=== PATIENT | male | born 1975 | race Caucasian/White ===

== ENCOUNTER → 2022-04-04 12:50 | Outpatient (BNVA) | payer BC, SELFPAY | PROVIDERS: PCP Internal Medicine; Visit Provider Surgery | DX: Z13.89 Encounter for screening for other disorder (principal) ==

== ENCOUNTER 2022-04-22 15:49 | Outpatient (REF) | payer BC, SELFPAY ==
--- NOTE | ~2022-04-22 | US_ITS ---
EXAMINATION: LEFT ELBOW ULTRASOUND CLINICAL INFORMATION: Pain left elbow COMPARISON: None TECHNIQUE: Limited ultrasound imaging to the left elbow was performed. FINDINGS: There is a complex echogenic fluid collection posterior left elbow could suggestive of olecranon bursitis. No additional abnormality seen. US/US extremity nonvascular IMPRESSION: Left olecranon bursitis posterior left elbow.
== END 2022-04-22 15:50 | disposition home or self-care (01) ==
LOC: HO.US 15:49
PROVIDERS: PCP Internal Medicine; Visit Provider Nurse Practitioner Acute Care
DX: M25.522 Pain in left elbow (principal)
CPT/HCPCS: 76882

== ENCOUNTER → 2022-05-18 14:10 | Outpatient (BNVA) | payer BC, SELFPAY | PROVIDERS: PCP Internal Medicine; Visit Provider Surgery | DX: D17.21 Benign lipomatous neoplasm of skin and subcutaneous tissue of right arm (principal) | CPT/HCPCS: 11400; 11401 ==

== ENCOUNTER 2024-02-29 15:09 | Emergency (ER) | payer BC, SELFPAY ==
[2024-02-29 15:36] VITALS: BP 128/80; PULSE 76; RESP 18; TEMP 36.7; O2SAT 96; BMI 26.4
--- NOTE | 2024-02-29 15:36 | ED.ABDPAIN ---
HPI - Abdominal Pain General Chief Complaint: Abdominal Pain Stated Complaint: right side abd pain Time Seen by Provider: 02/29/24 16:42 Related Data Home Medications ?Medication ?Instructions ?Recorded ?Confirmed No Known Home Meds 03/04/22 04/04/22 Allergies Allergy/AdvReac Type Severity Reaction Status Date / Time No Known Allergies Allergy Verified 02/29/24 15:38 PMFSH Past Medical History Surgical History History of appendectomy Social History Social History Housing: House Patient Tobacco Use Status: Never used Tobacco e-Cigarette/Vaping Use: Never Used service: No Current occupational status: employed Current occupational exposures/hazards: No Cognitive needs: No Hearing needs: No Vision needs: Yes Physical Exam ED Vital Signs: Vital Signs - 24 hr 02/29/24 15:36 Temperature 98.1 F Pulse Rate 76 Respiratory Rate 18 Blood Pressure 128/80 Pulse Oximetry 96 Oxygen Delivery Method Room Air BMI result Body Mass Index 26.4 Course Course Course Narrative: This is a rapid medical exam completed by rKis PHILLIPSN: Additional HPI, ROS, PE not included below will be deferred to primary provider. Right lower quadrant abdominal pain for several months. Came in today bc pain is increasing. Denies dysuria, n/v/d Discharge Plan Discharge Clinical Impression: Gastroenteritis, Left before treatment completed Patient Disposition: Left W/O Completing Treatment Prescriptions: No Action No Known Home Meds
--- NOTE | 2024-02-29 20:08 | MHC.EDTECH ---
@2007 Called patient for Lab work in triage, no answer
== END 2024-02-29 20:57 | disposition left against medical advice (07) ==
LOC: HO.ED 20:56
PROVIDERS: Emergency Provider Emergency Medicine
DX: K52.9 Noninfective gastroenteritis and colitis, unspecified (principal); R10.32 Left lower quadrant pain
CPT/HCPCS: 99281

== ENCOUNTER 2024-03-04 14:49 | Outpatient (AMB) | payer BC, SELFPAY ==
--- NOTE | 2024-03-04 15:01 | A.OFFPC_ITS ---
Vital Signs 03/04/24 15:02 Height 5 ft 6 in Weight 166 lb 8 oz BMI 26.9 BP 112/70 Blood Pressure Location Rt brachial Position Sitting Respiration 14 Pulse 78 Pulse Source Pulse Oximeter Temp 97.7 F Temp Source Temporal Artery Scan Pulse Oximetry (%) 98 Oxygen Delivery Method Room Air Intake Visit Reasons: Establish Care Senior Systems Analyst Required: No Accompanied by: Self / Same As Patient Allergies No Known Allergies Allergy (Verified 03/04/24 15:10) Tobacco use date assessed: 03/04/24 Dental Screening Dental Screen Date: 03/04/24 Did you have a dental visit in the last 12 months?: Yes Did you have a dental problem in the last 6 months where you did not have access to dental care?: No Was dental information given to patient?: Patient has dentist HPI HPI Comments History of Present Illness Details New patient [place] [place] office visit/labs/CPE: About 3 years Acute issue(s): He notes that he gets anxious and depressed every now and again for the past 2 years. He has never been diagnosed. He attributes his anxiety and depression symptoms to life situations such as work and financial stressors. No history of psychiatric hospitalization or psychotropic medications. He denies physical exercise. He notes that i'm not motivated to do anything. He also reports poor sleep. He notes that he sleeps an average of 3 hours nightly. He states that my mind doesn't rest. He has been working as a sheet rock applier for 24 years He also reports constant throbbing and soreness to an area of his right upper quadrant. His symptoms has been ongoing for the past 4 months and has progressively gotten worse, especially with eating diary or greasy foods. He reports diarrhea episode a few days ago after consuming greasy food; he went [place] [facility] [place] following days but left without being seen after waiting for some time. No n/v/d or bloody stool PMHx: None SurgHx: Appendectomy FHx: Mom: CHF, asthma, HTN, DM. Dad: DM, HTN. Sister: SLE SocHx: Nonsmoker. Drinks alcohol occasionally. Smokes marijuana occasionally PFSH Medical History (Updated 03/04/24 @ 15:44 by Rosa Maria Beckett CNP) Acid reflux Anxiety Minor surgery performed No pertinent past medical history Surgical History History of appendectomy Family History (Updated 03/04/24 @ 15:16 by Jennifer Tobias [facility]) Mother Asthma High blood pressure High cholesterol Diabetes Cardiovascular disease Social History Household Members: Family Both parents involved: No Caregiver staying overnight: No Housing: House Are you a primary direct care supervisor to a significant other at home: No Do you presently have visiting nurse or other home services: No 75 years or older and lives alone: No Alcohol intake: current Alcohol intake frequency: holidays/special occasions only Alcohol type: beer Patient Tobacco Use Status: Never used Tobacco e-Cigarette/Vaping Use: Never Used service: No Current occupational status: employed Current occupation: Cable Engineer Current occupational exposures/hazards: No Cognitive needs: No Hearing needs: No Vision needs: Yes Questionnaire PHQ-9 Over the last 2 weeks, how often have you been bothered by any of the following problems? 1. Little interest or pleasure in doing things: several days 2. Feeling down, depressed, or hopeless: several days 3. Trouble falling or staying asleep, or sleeping too much: nearly every day 4. Feeling tired or having little energy: more than half the days 5. Poor appetite or overeating: more than half the days 6. Feeling bad about yourself - or that you are a failure or have let yourself or your family down: several days 7. Trouble concentrating on things, such as reading the newspaper or watching television: several days 8. Moving or speaking so slowly that other people could have noticed. Or the opposite - being so fidgety or restless that you have been moving around a lot more than usual: not at all 9. Thoughts that you would be better off or of hurting yourself in some way: not at all Total score: 11 Depression Screening Interpretation: Positive Depression Screening Follow-up: Existing condition and New Medication prescribed Depression Screening Done: Yes 01330 - PHQ-9 Billing: Yes Source: Developed by Drs. Momo Milan, Ayde Aleman, Robert Garvey and colleagues, with an educational evon from [employer]. Thrive Questionnaire Date Thrive assessed: 03/04/24 I am a: Patient What is your living situation today?: I have a steady place to live Within the past 12 months, did the food you bought not last and you didn't have the money to get more?: Never true Within the past 12 months, did you worry whether your food would run out before you got money to buy more?: Never true Do you have trouble paying for medicines?: No Do you have trouble getting transportation to medical appointments?: No Do you have trouble paying your heating and electricity bill?: No Do you have trouble taking care of your child, family member or friend?: No Do you have trouble with day-to-day activities such as bathing, preparing meals, shopping, managing finances, etc.?: No Are you currently unemployed and looking for a job?: No Are you interested in more education?: Yes Please select the resources that you would like help with: Education Currently or been in a relationship where the following occur: no concerns reported THRIVE Score: 0 AUDIT C Alcohol Use Questionnaire (AUDIT-C) 1. How often do you have a drink containing alcohol?: Monthly or less 2. How many drinks containing alcohol do you have on a typical day when you are drinking?: 1 or 2 3. How often do you have six or more drinks on one occasion?: Never Total Score: 1 ROXY-7 AMB Questionnaire ROXY-7 Date ROXY - 7 assessed: 03/04/24 Feeling nervous, anxious, or on edge: 1 = Several days Not being able to stop or control worryin = Several days Worrying too much about different things: 1 = Several days Trouble relaxin = More than half the days Being so restless that it is hard to sit still: 1 = Several days Becoming easily annoyed or irritable: 1 = Several days Feeling afraid as if something awful might happen: 0 = Not at all Total ROXY-7 score (0-4 normal; 5-9 mild; 10-14 moderate; 15-21 severe): 7 Source: Developed by Drs. Momo Milan, Ayde Aleman, Robert Garvey and colleagues, with an educational evon from [employer]. ROXY-7 Assessment Billing ROXY-7 Assessment Tool: ROXY-7 Assessment 79186 Review of Systems Const Details: Const Denies chills, Denies fatigue, Denies fever(s), Denies headache(s) and Denies weakness ENT Denies dizziness and Denies headache(s) Card Denies chest pain, Denies lightheadedness, Denies dyspnea and Denies other (Palpitations) Resp Denies cough, Denies dyspnea, Denies wheezing and Denies other ( shortness of breath) GI Reports RUQ pain, Denies melena, Denies hematochezia, Denies change in bowel habits, Denies dyspepsia and Denies nausea Denies hematuria and Denies dysuria Musc Denies abnormal gait, Denies myalgias, Denies arthralgias, Denies numbness and Denies tingling Skin/Breast Denies rash, Denies unusual bruising and Denies wounds Neuro Denies abnormal gait, Denies dizziness, Denies headache(s), Denies memory loss, Denies numbness, Denies Sensory deficit (Neuro), Denies tingling and Denies weakness Psych Reports anxiety, REports depression, Denies memory loss Endo Denies cold intolerance, Denies fatigue, Denies heat intolerance, Denies polydipsia and Denies polyuria Aller/Immun Denies wheezing Physical exam (Primary Care) Vital Signs: Last Vital Signs Temp 97.7 F 03/04/24 15:02 Pulse 78 03/04/24 15:02 Resp 14 03/04/24 15:02 BP 112/70 03/04/24 15:02 Pulse Ox 98 03/04/24 15:02 Oxygen Delivery Method Room Air 03/04/24 15:02 BMI result Body Mass Index 26.9 Tobacco/Smoking Status: Tobacco use Status Tobacco use date assessed 03/04/24 03/04/24 15:12 Patient Tobacco Use Status Never used Tobacco 03/04/24 15:12 e-Cigarette/Vaping Use Never Used 03/04/24 15:12 PHQ-9: PHQ-9 Score PHQ-9: Total score 11 03/04/24 15:15 Depression Screening Interpretation: Positive Depression Screening Follow-up: Existing condition and New Medication prescribed Thrive Assessment: Date of Thrive Assessment Date Thrive assessed 03/04/24 03/04/24 15:15 Currently or been in a relationship where the following occur: no concerns reported Const Other: General: no acute distress and well developed Nutritional Appearance: well nourished Orientation/consciousness: patient oriented x3 HENMT Head: Yes normocephalic and Yes atraumatic Eyes General: appearance normal, both eyes and all related structures Pupils: Equal, round and reactive pupils present EOM: EOMs intact bilaterally Resp Effort & Inspection: normal respiratory effort Auscultation: clear to auscultation bilaterally Cardio Rate: regular rate Rhythm: regular rhythm Heart sounds: S1 normal heart sound present, S2 normal heart sound present, no gallops, no murmurs and no rubs GI Palpation (GI): No Abdominal aortic bruit present, Soft to palpation, RUQ tenderness, negative Vázquez's sign, No hepatosplenomegaly present and No Rebound tenderness present Auscultation: normal bowel sounds General: Yes no CVA tenderness Back/Spine/Pelvis Back: no CVA tenderness Cervical Spine: cervical ROM normal and No Cervical spine tenderness Thoracic/Lumbar Spine: thoraco-lumbar ROM normal, No pain with thoraco-lumbar ROM, No thoracic spinal tenderness and No lumbar spinal tenderness Extrem General: Yes normal to inspection, No edema and No calf tenderness Skin General: warm and dry. Normal skin color. Normal skin turgor Lesions: no lesions Rashes: no rashes Trauma: no lacerations or abrasions Wounds: no wounds Nails: normal Neuro General: patient oriented x3, gait normal and no focal neuro deficit Cranial nerves: Yes Equal, round and reactive pupils present Cognition (Neuro): normal cognition Gait exam (Neuro): Normal gait present Sensory Exam: No Sensory deficit (Neuro) Psych Appearance: grossly normal Affect: normal affect Attitude: cooperative Thought process: Normal thought process present Assessment and Plan Assessment & Plan (1) Right upper quadrant pain: Code(s): R10.11 - Right upper quadrant pain Plan: Reports constant right upper quadrant pain x4 months and have progressively gotten worse especially with eating greasy foods RUQ tenderness with negative Vázquez's sign Likely gallbladder disease Urgent ultrasound ordered; he will be contacted to schedule ultrasound May take Tylenol for pain or discomfort Advised to avoid fatty or greasy foods Will check labs including lipase Encouraged to go to the ED with worsening or new symptoms Verbalized understanding and agreed with treatment plan (2) Anxiety and depression: Code(s): F41.9 - Anxiety disorder, unspecified; F32.A - Depression, unspecified Plan: Reports anxiety and depression symptoms for the past 2 years. Attributes his symptoms to work and financial stressors. Also reports poor sleep and lack of motivation. He also has constant right upper quadrant pain which may be interrupting with his sleep PHQ-9 and ROXY-7 scores revealed moderate depression and mild anxiety respectively Sertraline ordered. Take as prescribed Follow-up in 2 weeks or return sooner with worsening or new symptoms Verbalized understanding and agreed with treatment plan (3) Laboratory tests ordered as part of a complete physical exam (CPE): Code(s): Z00.00 - Encounter for general adult medical examination without abnormal findings Plan: Fasting labs ordered in preparation of a complete physical exam. Advised to fast for at least 10 hours before getting labs drawn. May drink water Verbalized understanding and agreed with treatment plan. Orders: Orders Complete Blood Count Auto Diff Today Z00.00 - Encounter for general adult medical examination without abnormal findings Lipid Panel Today Z00.00 - Encounter for general adult medical examination without abnormal findings TSH reflex Free T4 Today Z00.00 - Encounter for general adult medical examination without abnormal findings Comprehensive [place]. Panel Fast Today Z00.00 - Encounter for general adult medical examination without abnormal findings UA CC w/rflx Micro + Cult Today Z00.00 - Encounter for general adult medical examination without abnormal findings PSA, Ultra Sensitive Today Z00.00 - Encounter for general adult medical examination without abnormal findings US abdomen limited Today R10.11 - Right upper quadrant pain Lipase Today R10.11 - Right upper quadrant pain Medications: New sertraline 50 mg PO DAILY 30 days 30 tabs 3RF Coding Level of Care Code New Pt Level 4 (23687) Complex EM visit Add On G2211 Diagnoses Right upper quadrant pain R10.11 Anxiety and depression F41.9; F32.A Laboratory tests ordered as part of a complete physical exam (CPE) Z00.00 Additional Codes ROXY-7 Assessment Billing - ROXY-7 Assessment Tool: ROXY-7 Assessment 74602 ([id number])
[2024-03-04 15:02] VITALS: BP 112/70; PULSE 78; RESP 14; TEMP 36.5; O2SAT 98; BMI 26.9
== END 2024-03-04 15:44 | disposition home or self-care (01) ==
PROVIDERS: Visit Provider Nurse Practitioner Family
DX: R10.11 Right upper quadrant pain (principal); F41.9 Anxiety disorder, unspecified; F32.A Depression, unspecified
CPT/HCPCS: 96127; 99204; G2211

== ENCOUNTER 2024-03-05 09:14 | Outpatient (REF) | payer BC, SELFPAY ==
[2024-03-05 09:34] LABS: MANUAL DIFF FLAG NO
[2024-03-05 09:44] LABS: Basophils Absolute Auto 0.1 X10*3/uL (0.0-0.2); Basophils Percent Auto 1.1 % (0-2); Eosinophils Absolute Auto 0.2 X10*3/uL (0.0-0.4); Eosinophils Percent Auto 2.9 % (0-4); Hematocrit 47.5 % (42.0-52.0); Hemoglobin 17.1 g/dl (14.0-18.0); Imm Gran Abs Auto 0.02 X10*3/uL (0.00-0.03); Imm Gran Pct Auto 0.3 % (0.0-0.4); Lymphocytes Absolute Auto 1.4 X10*3/uL (1.2-4.9); Lymphocytes Percent Auto 22.7 % (20-40); Mean Corpuscular Hemoglobin 29.9 pg (27.0-33.0); Mean Corpuscular Volume 83.2 fL (80.0-98.0); Mean Platelet Volume 9.9 fL (9.4-12.4); Monocytes Absolute Auto 0.4 X10*3/uL (0.1-1.2); Neutrophils Absolute Auto 4.2 x10*3/uL (2.0-8.3); Platelet Count 256 X10*3/uL (160-400); Red Blood Count 5.71 X10*6/uL (4.60-5.80); White Blood Count 6.3 X10*3/uL (4.8-10.8)
[2024-03-05 10:23] LABS: Alanine Aminotransferase 28 U/L (0-40); Albumin Level 4.5 g/dL (3.5-5.0); Alkaline Phosphatase 50 U/L (39-117); Anion Gap 13 (12-20); Aspartate Amino Transferase 22 U/L (5-37); Bilirubin Total 0.7 mg/dL (0.0-1.0); Blood Urea Nitrogen 9 mg/dL (9-16); Calcium 9.7 mg/dL (8.4-10.2); Carbon Dioxide 28 mmol/L (22-29); Chloride 104 mmol/L (96-108); Cholesterol 191 mg/dL (<200); Estimated Glomerular Filt Rate > 60; Glucose Fasting 92 mg/dL (60-99); HDL Cholesterol 39 mg/dL (>40); LDL Cholesterol Calculated 116 mg/dL (<100); Lipase 30 U/L (8-78); Potassium 4.2 mmol/L (3.3-5.1); Sodium 141 mmol/L (135-145); Total Protein 7.6 g/dL (6.5-8.0); Triglycerides 183 mg/dL (<150)
[2024-03-05 10:39] LABS: TSH reflex Free T4 1.02 uIU/mL (0.32-4.0)
[2024-03-05 10:42] LABS: Appearance Urine Clear; Color Urine Yellow; Glucose Urine UA Negative (Negative); Leukocyte Esterase Urine Negative (Negative); Nitrite Urine Negative (Negative); PH 6.5 (5.0-9.0); Urine Blood Negative (Negative); Urine Ketones Negative (Negative); Urine Protein Negative (Neg-Trace)
[2024-03-09 17:14] LABS: PSA, Ultra Sensitive 1.92 ng/mL
== END 2024-03-05 09:15 | disposition home or self-care (01) ==
LOC: HO.LAB 09:14
PROVIDERS: PCP Nurse Practitioner Family; Visit Provider Nurse Practitioner Family
DX: Z00.00 Encounter for general adult medical examination without abnormal findings (principal); R10.11 Right upper quadrant pain; Z12.5 Encounter for screening for malignant neoplasm of prostate
CPT/HCPCS: 36415; 80053; 80061; 81003; 83690; 84153; 84443; 85025

== ENCOUNTER 2024-03-12 09:47 | Outpatient (REF) | payer BC, SELFPAY ==
--- NOTE | ~2024-03-12 | US_ITS ---
EXAMINATION: US ABDOMEN LIMITED CLINICAL INFORMATION: Right upper quadrant pain. COMPARISON: None available. TECHNIQUE: Real-time imaging of the right upper quadrant abdominal viscera. Limited visualization due to bowel gas. FINDINGS: PANCREAS: Limited visualization of pancreatic tail and head. Imaged portion of pancreatic body is unremarkable. LIVER: Mildly increased hepatic parenchymal heterogeneity and echogenicity could be associated with hepatocellular disease/hepatic steatosis and substantially limits visualization. Correlation with liver function tests and clinical exam recommended to determine further management. GALLBLADDER: No gallstones. No gallbladder wall thickening. COMMON BILE DUCT: Normal in caliber measuring 0.4 cm in diameter. RIGHT KIDNEY: No hydronephrosis. No renal calculi. Limited visualization. The kidney measures 11.1 cm in maximum dimension. FREE FLUID: None. US/US abdomen limited IMPRESSION: Mildly increased hepatic parenchymal heterogeneity and echogenicity could be associated with hepatocellular disease/hepatic steatosis and substantially limits visualization. Correlation with liver function tests and clinical exam recommended to determine further management. This study was presented today, March 12, 2024 for interpretation. Stat results provided at this time as requested by referring provider.
== END 2024-03-12 09:48 | disposition home or self-care (01) ==
LOC: HO.US 09:47
PROVIDERS: PCP Nurse Practitioner Family; Visit Provider Nurse Practitioner Family
DX: R10.11 Right upper quadrant pain (principal)
CPT/HCPCS: 76705

== ENCOUNTER 2024-03-18 11:33 | Outpatient (AMB) | payer BC, SELFPAY ==
--- NOTE | 2024-03-18 11:42 | A.OFFPC_ITS ---
Vital Signs 03/18/24 11:45 Height 5 ft 6 in Weight 165 lb BMI 26.6 BP 118/72 Blood Pressure Location Rt brachial Position Sitting Pulse 72 Pulse Source Pulse Oximeter Pulse Oximetry (%) 98 Oxygen Delivery Method Room Air Intake Visit Reasons: 2 wks anxiety depression Intake Note: pt is here for ultrasound results and anxiety/depression Allergies No Known Allergies Allergy (Verified 03/18/24 11:44) Tobacco use date assessed: 03/04/24 Dental Screening Dental Screen Date: 03/04/24 HPI HPI Comments History of Present Illness Details 48-year-old male presents for right uppe r quadrant abdominal pain, anxiety, depression, and recent lab results follow-up He was prescribed sertraline 50 mg daily for anxiety and depression symptoms. He notes that he stopped taking the medication after 1 dose due to chest pain, palpitations, and sweating. He reports some anxiety and depression symptoms; he is willing to try different medication He reports continued constant red upper quadrant pain with associated nausea at times 03/12/2024 abdominal ultrasound revealed the following: Mildly increased hepatic parenchymal heterogeneity and echogenicity could be associated with hepatocellular disease/hepatic steatosis and substantially limits visualization. Correlation with liver function tests and clinical exam recommended to determine further management. [facility] Medical History Acid reflux Anxiety Minor surgery performed No pertinent past medical history Surgical History History of appendectomy Family History Mother Asthma High blood pressure High cholesterol Diabetes Cardiovascular disease Social History (Updated 03/04/24 @ 15:12 by MARGA Sosa) Household Members: Family Both parents involved: No Caregiver staying overnight: No Housing: House Are you a primary career services assistant to a significant other at home: No Do you presently have visiting nurse or other home services: No 75 years or older and lives alone: No Alcohol intake: current Alcohol intake frequency: holidays/special occasions only Alcohol type: beer Patient Tobacco Use Status: Never used Tobacco e-Cigarette/Vaping Use: Never Used service: No Current occupational status: employed 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 1. Little interest or pleasure in doing things: more than half the days 2. Feeling down, depressed, or hopeless: several days 3. Trouble falling or staying asleep, or sleeping too much: nearly every day 4. Feeling tired or having little energy: more than half the days 5. Poor appetite or overeating: not at all 6. Feeling bad about yourself - or that you are a failure or have let yourself or your family down: not at all 7. Trouble concentrating on things, such as reading the newspaper or watching television: several days 8. Moving or speaking so slowly that other people could have noticed. Or the opposite - being so fidgety or restless that you have been moving around a lot more than usual: not at all 9. Thoughts that you would be better off or of hurting yourself in some way: not at all Total score: 9 Depression Screening Interpretation: Positive Depression Screening Follow-up: Existing condition, In treatment and New Medication prescribed Depression Screening Done: Yes 50998 - PHQ-9 Billing: Yes Source: Developed by Drs. Momo Milan, Ayde Aleman, Robert childers nd colleagues, with an educational evon from [employer]. Thrive Questionnaire Date Thrive assessed: 03/04/24 ROXY-7 AMB Questionnaire ROXY-7 Date ROXY - 7 assessed: 03/18/24 Feeling nervous, anxious, or on edge: 1 = Several days Not being able to stop or control worryin = More than half the days Worrying too much about different things: 2 = More than half the days Trouble relaxin = More than half the days Being so restless that it is hard to sit still: 1 = Several days Becoming easily annoyed or irritable: 1 = Several days Feeling afraid as if something awful might happen: 0 = Not at all Total ROXY-7 score (0-4 normal; 5-9 mild; 10-14 moderate; 15-21 severe): 9 Source: Developed by Drs. Momo Milan, Ayde Aleman, Robert Garvey and colleagues, with an educational evon from [employer]. ROXY-7 Assessment Billing ROXY-7 Assessment Tool: ROXY-7 Assessment 36918 Review of Systems Const Details: Const Denies chills, Denies fatigue, Denies fever(s), Denies headache(s) and Denies weakness ENT Denies dizziness and Denies headache(s) Card Denies chest pain, Denies lightheadedness, Denies dyspnea and Denies other (Palpitations) Resp Denies cough, Denies dyspnea, Denies wheezing and Denies other ( shortness of breath) GI Reports abdominal pain, Denies melena, Denies hematochezia, Denies change in bowel habits, Denies dyspepsia and Denies nausea Denies hematuria and Denies dysuria Musc Denies abnormal gait, Denies myalgias, Denies arthralgias, Denies numbness and Denies tingling Skin/Breast Denies rash, Denies unusual bruising and Denies wounds Neuro Denies abnormal gait, Denies dizziness, Denies headache(s), Denies memory loss, Denies numbness, Denies Sensory deficit (Neuro), Denies tingling and Denies weakness Psych Reports anxiety, Reports depression, Denies memory loss Endo Denies cold intolerance, Denies fatigue, Denies heat intolerance, Denies polydipsia and Denies polyuria Aller/Immun Denies wheezing Physical exam (Primary Care) Vital Signs: Last Vital Signs Pulse 72 03/18/24 11:45 BP 118/72 03/18/24 11:45 Pulse Ox 98 03/18/24 11:45 Oxygen Delivery Method Room Air 03/18/24 11:45 BMI result Body Mass Index 26.6 Tobacco/Smoking Status: Tobacco use Status Tobacco use date assessed 03/04/24 03/18/24 11:43 Patient Tobacco Use Status Never used Tobacco 03/18/24 11:43 e-Cigarette/Vaping Use Never Used 03/18/24 11:43 Depression Screening Interpretation: Positive Depression Screening Follow-up: Existing condition, In treatment and New Medication prescribed Thrive Assessment: Date of Thrive Assessment Date Thrive assessed 03/04/24 03/18/24 11:43 Const Other: General: no acute distress and well developed Nutritional Appearance: well nourished Orientation/consciousness: patient oriented x3 HENMT Head: Yes normocephalic and Yes atraumatic Eyes General: appearance normal, both eyes and all related structures Pupils: Equal, round and reactive pupils present EOM: EOMs intact bilaterally Resp Effort & Inspection: normal respiratory effort Auscultation: clear to auscultation bilaterally Cardio Rate: regular rate Rhythm: regular rhythm Heart sounds: S1 normal heart sound present, S2 normal heart sound present, no gallops, no murmurs and no rubs GI Palpation (GI): No Abdominal aortic bruit present, Soft to palpation, nontender, No hepatosplenomegaly present and No Rebound tenderness present Auscultation: normal bowel sounds General: Yes no CVA tenderness Back/Spine/Pelvis Back: no CVA tenderness Cervical Spine: cervical ROM normal and No Cervical spine tenderness Thoracic/Lumbar Spine: thoraco-lumbar ROM normal, No pain with thoraco-lumbar ROM, No thoracic spinal tenderness and No lumbar spinal tenderness Extrem General: Yes normal to inspection, No edema and No calf tenderness Skin General: warm and dry. Normal skin color. Normal skin turgor Neuro General: patient oriented x3, gait normal and no focal neuro deficit Cranial nerves: Yes Equal, round and reactive pupils present Cognition (Neuro): normal cognition Gait exam (Neuro): Normal gait present Sensory Exam: No Sensory deficit (Neuro) Psych Appearance: grossly normal Affect: normal affect Attitude: cooperative Thought process: Normal thought process present Assessment and Plan Assessment & Plan (1) Anxiety and depression: Code(s): F41.9 - Anxiety disorder, unspecified; F32.A - Depression, unspecified Plan: Reports some anxiety and depression symptoms. She stopped taking sertraline after 1 dose due to adverse reactions of chest pain, palpitations, and heart racing Wellbutrin ordered. Take as prescribed. Instructed on the risks, benefits, and potential adverse reactions of the medication Routine exercise encouraged Declines psychotherapy Follow-up in 2 weeks or return sooner with worsening or new symptoms Verbalized understanding and agreed with treatment plan (2) Right upper quadrant pain: Code(s): R10.11 - Right upper quadrant pain Plan: Recent abdominal ultrasound is benign Lipase and liver enzymes are normal Referred to [facility] gastroenterology for further evaluation and treatment Follow-up with worsening or new symptoms Verbalized understanding and agreed with treatment plan (3) Dyslipidemia: Code(s): E78.5 - Hyperlipidemia, unspecified Plan: Recent lab work reviewed with the patient; normal findings except for elevated triglycerides and low HDL, 183 and 39 respectively Advised to limit foods high in saturated fat and avoid foods high in trans fat Routine exercise encouraged Will continue to monitor Verbalized understanding and agreed with treatment plan Orders: Referrals Gastroenterology Referral R10.11 - Right upper quadrant pain Medications: New bupropion HCl XL (Wellbutrin XL) 150 mg PO QAM 30 days 30 tabs 3RF Coding Level of Care Code Est Pt Level 4 (56909) Complex EM visit Add On G2211 Diagnoses Anxiety and depression F41.9; F32.A Right upper quadrant pain R10.11 Dyslipidemia E78.5 Additional Codes ROXY-7 Assessment Billing - ROXY-7 Assessment Tool: ROXY-7 Assessment [id number] ([id number])
[2024-03-18 11:45] VITALS: BP 118/72; PULSE 72; O2SAT 98; BMI 26.6
== END 2024-03-18 12:13 | disposition home or self-care (01) ==
PROVIDERS: Visit Provider Nurse Practitioner Family
DX: F41.9 Anxiety disorder, unspecified (principal); F32.A Depression, unspecified; R10.11 Right upper quadrant pain; E78.5 Hyperlipidemia, unspecified
CPT/HCPCS: 96127; 99214